=== PATIENT | female | born 1995 | race Two or more races ===

== ENCOUNTER 2021-08-17 20:27 | Emergency (ER) | payer OTHER ==
[~2021-08-17] VITALS: Ht 152.4 cm; Wt 57.6 kg
[2021-08-17] MEDS ORDERED: TYLENOL (21:44)
[2021-08-18] MEDS ORDERED: KETO10TA2 PO (03:24)
== END 2021-08-18 04:23 | disposition home or self-care (01) ==
LOC: EDBD 20:27 → ER 20:27
DX: N83.209 Unspecified ovarian cyst, unspecified side (principal); R10.2 Pelvic and perineal pain

== ENCOUNTER 2021-09-25 16:24 | Emergency (ER) | payer OTHER ==
[~2021-09-25] VITALS: Ht 152.4 cm; Wt 54.4 kg
[~2021-09-25 16:24] MED LIST: KETO10TA2 PO; TYLENOL
== END 2021-09-25 20:18 | disposition home or self-care (01) ==
LOC: ER 16:24
DX: A60.00 Herpesviral infection of urogenital system, unspecified (principal)

== ENCOUNTER → 2022-02-15 | Emergency (ER) | payer OTHER ==
[~2022-02-15] VITALS: Ht 160 cm; Wt 54.4 kg
== END | disposition home or self-care (01) ==
LOC: ER 20:15
DX: K29.70 Gastritis, unspecified, without bleeding (principal)